=== PATIENT | male | born 1990 | race African-American/Black ===

== ENCOUNTER 2017-10-06 08:59 | Emergency (ER) | payer SELFPAY ==
[~2017-10-06] VITALS: Ht 182.9 cm; Wt 110.0 kg
[2017-10-06 09:01] VITALS: BP 139/91; PULSE 71; RESP 16; TEMP 98.4; O2SAT 98
[2017-10-06] MEDS ORDERED: PROCHCT RECTAL (09:59)
--- NOTE | 2017-10-06 10:05 | PD ---
HPI Chief Complaint: GI Complaint Time Seen by Provider: 09:27 Travel History International Travel<30 days: No Contact w/Intl Traveler<30days: No Traveled to known affect area: No History of Present Illness HPI This patient complains of rectal pain. He's had hemorrhoid problems the past. He has no drainage or bleeding from it. It's been irritating him for 4 days. Symptoms severity is mild to moderate PFSH Past Medical History Anxiety: Yes Diminished Hearing: No Gastrointestinal Disorders: Yes (hemorrhoids) Influenza Vaccination: No Past Surgical History Surgical History: No Previous Surgery Social History Alcohol Use: No Tobacco Use: No Substance Use: No Allergies-Medications (Allergen,Severity, Reaction): Coded Allergies: No Known Allergies (Unverified , 10/06/17) Reported Meds & Prescriptions Reported Meds & Active Scripts Active Proctofoam Hc Rectal (Hydrocortisone/Pramoxine) 1-1% Foam 1 Applic RECTAL Q8H PRN Review of Systems HENT: No: Headaches Cardiovascular: No: Chest Pain or Discomfort Respiratory: No: Cough Gastrointestinal: No: Nausea Physical Exam Narrative GASTROINTESTINAL: Abdomen soft, non-tender, nondistended. Positive bowel sounds. No hepato-splenomegaly, or palpable masses. No guarding. SKIN: Focused skin assessment reveals no rash or ulcers. Skin is warm and dry. Palpation shows no induration or nodules. Rectal: Patient has a tender external hemorrhoid at the 6 o'clock position. I don't see any sign of infection. No drainage or bleeding. Data Data Last Documented VS Vital Signs Date Time Temp Pulse Resp B/P (MAP) Pulse Ox O2 Delivery O2 Flow Rate FiO2 10/06/17 09:01 98.4 71 16 139/91 (107) 98 MDM Medical Decision Making Medical Screen Exam Complete: Yes Emergency Medical Condition: Yes Medical Record Reviewed: Yes Differential Diagnosis External hemorrhoid, abscess, boil Narrative Course I have reviewed the patient's electronic medical record. I prescribed him some Vicente foam HC Follow-up with primary care or colorectal physician Diagnosis Primary Impression: External hemorrhoid Additional Instructions: The patient was advised to follow up with their physician and return if they worsen. Med/Other Pt SpecificInfo: Prescription(s) given Scripts Hydrocortisone-Pramoxine Rectal (Proctofoam Hc Rectal) 1-1% Foam 1 APPLIC RECTAL Q8H Y for ITCHING/INFLAMMATION, #1 CAN 0 Refills Prov: Gomez Hansen MD 10/06/17 Disposition: 01 DISCHARGE HOME Condition: Stable Gomez Hansen MD Oct 06, 2017 10:05
== END 2017-10-06 10:17 | disposition home or self-care (01) ==
LOC: NEPD 08:59
DX: K64.4 Residual hemorrhoidal skin tags (principal); F41.9 Anxiety disorder, unspecified
CPT/HCPCS: 99283

== ENCOUNTER 2017-10-09 11:27 | Emergency (ER) | payer SELFPAY ==
[~2017-10-09 11:27] MED LIST: PROCHCT RECTAL
[2017-10-09 11:38] VITALS: BP 132/88; PULSE 84; RESP 16; TEMP 98.2; O2SAT 100
--- NOTE | 2017-10-09 14:05 | PD ---
HPI Chief Complaint: Lump, Cyst, Hernia Time Seen by Provider: 13:50 Travel History International Travel<30 days: No Contact w/Intl Traveler<30days: No Traveled to known affect area: No History of Present Illness HPI 27-year-old male presents to the emergency department complaining of rectal pain since Sunday. States that he has been using Proctofoam and this is not relieved his pain. Says his pain is severe, no radiation of pain. States that ibuprofen has helped but quickly wears off. Today, he has taken a total of 1600mg of ibuprofen with mild relief. Says he was seen yesterday by his primary care physician and he was diagnosed with hemorrhoids. Patient says that he has occasional bright red bleeding per rectum. Denies foreign body insertion. Says he has pain with sitting and has a "shock to the stomach" whenever he urinates and defecates. At this point patient is actively trying to hold his urine and stool secondary to pain. Denies fever, chills. Denies other chronic issues. PFSH Past Medical History Anxiety: Yes Diminished Hearing: No Gastrointestinal Disorders: Yes (hemorrhoids) Social History Alcohol Use: No Tobacco Use: No Substance Use: No Allergies-Medications (Allergen,Severity, Reaction): Coded Allergies: No Known Allergies (Unverified , 10/09/17) Reported Meds & Prescriptions Reported Meds & Active Scripts Active Ibuprofen 800 Mg Tab 800 Mg PO Q6HR PRN Percocet (Oxycodone-Acetaminophen) 5-325 mg Tab 1-2 Tab PO Q6H PRN Flagyl (Metronidazole) 500 Mg Tab 500 Mg PO TID 10 Days Ciprofloxacin (Ciprofloxacin HCl) 500 Mg Tab 500 Mg PO BID 10 Days Proctofoam Hc Rectal (Hydrocortisone/Pramoxine) 1-1% Foam 1 Applic RECTAL Q8H PRN Review of Systems Except as stated in HPI: all other systems reviewed are Neg Physical Exam Narrative GENERAL: Well-nourished, well-developed patient. SKIN: Focused skin assessment warm/dry. HEAD: Normocephalic. EYES: No scleral icterus. No injection or drainage. NECK: Supple, trachea midline. No JVD or lymphadenopathy. CARDIOVASCULAR: Regular rate and rhythm without murmurs, gallops, or rubs. RESPIRATORY: Breath sounds equal bilaterally. No accessory muscle use. GASTROINTESTINAL: Abdomen soft, non-tender, nondistended. Rectal exam- 10 to 11 o'clock position to anus area of induration and extreme pain. No evidence of rectal involvement with digital exam. MUSCULOSKELETAL: No cyanosis, or edema. BACK: Nontender without obvious deformity. No CVA tenderness. Data Data Last Documented VS Vital Signs Date Time Temp Pulse Resp B/P (MAP) Pulse Ox O2 Delivery O2 Flow Rate FiO2 10/09/17 17:47 70 16 123/55 (77) 98 10/09/17 16:00 Room Air 10/09/17 11:38 98.2 Orders Orders Acetamin-Hydrocod 325-5 Mg ([place] 5-325 (10/09/17 14:15) Ct Pelvis W Iv Contrast(Rout) (10/09/17 ) Complete Blood Count With Diff (10/09/17 14:23) Comprehensive Metabolic Panel (10/09/17 14:23) Lipase (10/09/17 14:23) Prothrombin Time / Inr (Pt) (10/09/17 14:23) Act Partial Throm Time (Ptt) (10/09/17 14:23) Urinalysis - C+S If Indicated (10/09/17 14:23) Iv Access Insert/Monitor (10/09/17 14:23) Sodium Chlor 0.9% 1000 Ml Inj (Ns 1000 M (10/09/17 14:23) Sodium Chloride 0.9% Flush (Ns Flush) (10/09/17 14:30) Morphine Inj (Morphine Inj) (10/09/17 14:30) Ondansetron Inj (Zofran Inj) (10/09/17 14:30) Iohexol 350 Inj (Omnipaque 350 Inj) (10/09/17 14:59) Morphine Inj (Morphine Inj) (10/09/17 16:15) Lidocaine 1% Inj (50 Ml) (Xylocaine 1% I (10/09/17 16:15) Wound Culture And Gram Stain (10/09/17 16:15) Ed Discharge Order (10/09/17 17:12) Labs Laboratory Tests Test 10/09/17 14:40 10/09/17 16:03 White Blood Count 8.4 TH/MM3 Red Blood Count 4.69 MIL/MM3 Hemoglobin 14.3 GM/DL Hematocrit 42.7 % Mean Corpuscular Volume 91.1 FL Mean Corpuscular Hemoglobin 30.4 PG Mean Corpuscular Hemoglobin Concent 33.4 % Red Cell Distribution Width 12.2 % Platelet Count 169 TH/MM3 Mean Platelet Volume 10.1 FL Neutrophils (%) (Auto) 77.1 % Lymphocytes (%) (Auto) 15.7 % Monocytes (%) (Auto) 6.6 % Eosinophils (%) (Auto) 0.3 % Basophils (%) (Auto) 0.3 % Neutrophils # (Auto) 6.5 TH/MM3 Lymphocytes # (Auto) 1.3 TH/MM3 Monocytes # (Auto) 0.6 TH/MM3 Eosinophils # (Auto) 0.0 TH/MM3 Basophils # (Auto) 0.0 TH/MM3 CBC Comment DIFF FINAL Differential Comment Prothrombin Time 11.1 SEC Prothromb Time International Ratio 1.0 RATIO Activated Partial Thromboplast Time 28.0 SEC Blood Urea Nitrogen 6 MG/DL Creatinine 1.09 MG/DL Random Glucose 79 MG/DL Total Protein 7.7 GM/DL Albumin 3.9 GM/DL Calcium Level 9.0 MG/DL Alkaline Phosphatase 63 U/L Aspartate Amino Transf (AST/SGOT) 38 U/L Alanine Aminotransferase (ALT/SGPT) 38 U/L Total Bilirubin 0.5 MG/DL Sodium Level 139 MEQ/L Potassium Level 4.0 MEQ/L Chloride Level 105 MEQ/L Carbon Dioxide Level 27.8 MEQ/L Anion Gap 6 MEQ/L Estimat Glomerular Filtration Rate 98 ML/MIN Lipase 87 U/L Urine Color LIGHT-YELLOW Urine Turbidity CLEAR Urine pH 7.0 Urine Specific [place] 1.024 Urine Protein NEG mg/dL Urine Glucose (UA) NEG mg/dL Urine Ketones NEG mg/dL Urine Occult Blood NEG Urine Nitrite NEG Urine Bilirubin NEG Urine Urobilinogen LESS THAN 2.0 MG/DL Urine Leukocyte Esterase NEG Microscopic Urinalysis Comment CULT NOT INDICATED MDM Medical Decision Making Medical Screen Exam Complete: Yes Emergency Medical Condition: Yes Differential Diagnosis Perianal abscess versus perirectal abscess versus hemorrhoids Narrative Course 27-year-old male presents to the emergency department complaining of rectal pain since Sunday. States that he has been using Proctofoam and this is not relieved his pain. Says his pain is severe, no radiation of pain. States that ibuprofen has helped but quickly wears off. Today, he has taken a total of 1600mg of ibuprofen with mild relief. Says he was seen yesterday by his primary care physician and he was diagnosed with hemorrhoids. Patient says that he has occasional bright red bleeding per rectum. Denies foreign body insertion. Says he has pain with sitting and has a "shock to the stomach" whenever he urinates and defecates. At this point patient is actively trying to hold his urine and stool secondary to pain. Denies fever, chills. Denies other chronic issues. Vital signs stable Physical exam demonstrates potential abscess to the perianal area. I'm concerned this is a deeper soft tissue infection as I'm not convinced this pain is of a hemorrhoid etiology. Patient is had no relief from Proctofoam. Patient is nearly writhing in pain and area to movement of the buttocks. Administered hydrocodone. Patient will be followed up/ transferred to D pod with Meme. See her note regarding further treatment and evaluation. Referrals: Colon Rectal Specialist Additional Instructions: Follow-up a primary care physician within 2-3 days. Scripts Ibuprofen (Ibuprofen) 800 Mg Tab 800 MG PO Q6HR Y for PAIN, #30 TAB 0 Refills Prov: Sole Noriega 10/09/17 Oxycodone-Acetaminophen (Percocet) 5-325 mg Tab 1-2 TAB PO Q6H Y for PAIN, #20 TAB 0 Refills Prov: VanessaSole casianoP 10/09/17 Metronidazole (Flagyl) 500 Mg Tab 500 MG PO TID for Infection for 10 Days, TAB 0 Refills Prov: Sole NoriegaP 10/09/17 Ciprofloxacin (Ciprofloxacin) 500 Mg Tab 500 MG PO BID for Infection for 10 Days, #20 TAB 0 Refills Prov: HariSole 10/09/17 Disposition: 01 DISCHARGE HOME Condition: Stable Yina Macias Oct 09, 2017 14:05
[2017-10-09] MEDS ORDERED: ACETAMINOPHEN/HYDROcodone 325 MG/5 MG TAB PO ONE (14:15)
[2017-10-09] MEDS ORDERED: SODIUM CHLOR 0.9% 1000 ML INJ 1,000 ML IV SCH (14:23)
[2017-10-09] MEDS ORDERED: ONDANSETRON HCL 4 MG/2 ML VIAL IV PUSH ONE (14:30)
[2017-10-09] MEDS ORDERED: SODIUM CHLORIDE 0.9% FLUSH 10 ML FLUSH IV FLUSH PRN (14:30)
[2017-10-09] MEDS ORDERED: MORPHINE SULFATE 4 MG/ML INJ IV PUSH ONE ×2 (14:30→16:15)
--- NOTE | 2017-10-09 14:34 | PD ---
Physical Exam Time Seen by Provider: 14:30 Narrative I received report from Yina Macias PA-C. See her note for initial history of present illness and patient assessment. Data Data Last Documented VS Vital Signs Date Time Temp Pulse Resp B/P (MAP) Pulse Ox O2 Delivery O2 Flow Rate FiO2 10/09/17 11:38 98.2 84 16 132/88 (103) 100 Orders Orders Acetamin-Hydrocod 325-5 Mg ([place] 5-325 (10/09/17 14:15) Ct Pelvis W Iv Contrast(Rout) (10/09/17 ) Complete Blood Count With Diff (10/09/17 14:23) Comprehensive Metabolic Panel (10/09/17 14:23) Lipase (10/09/17 14:23) Prothrombin Time / Inr (Pt) (10/09/17:23) Act Partial Throm Time (Ptt) (10/09/17 14:23) Urinalysis - C+S If Indicated (10/09/17 14:23) Iv Access Insert/Monitor (10/09/17 14:23) Sodium Chlor 0.9% 1000 Ml Inj (Ns 1000 M (10/09/17 14:23) Sodium Chloride 0.9% Flush (Ns Flush) (10/09/17 14:30) Morphine Inj (Morphine Inj) (10/09/17 14:30) Ondansetron Inj (Zofran Inj) (10/09/17 14:30) Iohexol 350 Inj (Omnipaque 350 Inj) (10/09/17 14:59) Morphine Inj (Morphine Inj) (10/09/17 16:15) Lidocaine 1% Inj (50 Ml) (Xylocaine 1% I (10/09/17 16:15) Wound Culture And Gram Stain (10/09/17 16:15) Ed Discharge Order (10/09/17 17:12) Labs Laboratory Tests Test 10/09/17 14:40 10/09/17 16:03 White Blood Count 8.4 TH/MM3 Red Blood Count 4.69 MIL/MM3 Hemoglobin 14.3 GM/DL Hematocrit 42.7 % Mean Corpuscular Volume 91.1 FL Mean Corpuscular Hemoglobin 30.4 PG Mean Corpuscular Hemoglobin Concent 33.4 % Red Cell Distribution Width 12.2 % Platelet Count 169 TH/MM3 Mean Platelet Volume 10.1 FL Neutrophils (%) (Auto) 77.1 % Lymphocytes (%) (Auto) 15.7 % Monocytes (%) (Auto) 6.6 % Eosinophils (%) (Auto) 0.3 % Basophils (%) (Auto) 0.3 % Neutrophils # (Auto) 6.5 TH/MM3 Lymphocytes # (Auto) 1.3 TH/MM3 Monocytes # (Auto) 0.6 TH/MM3 Eosinophils # (Auto) 0.0 TH/MM3 Basophils # (Auto) 0.0 TH/MM3 CBC Comment DIFF FINAL Differential Comment Prothrombin Time 11.1 SEC Prothromb Time International Ratio 1.0 RATIO Activated Partial Thromboplast Time 28.0 SEC Blood Urea Nitrogen 6 MG/DL Creatinine 1.09 MG/DL Random Glucose 79 MG/DL Total Protein 7.7 GM/DL Albumin 3.9 GM/DL Calcium Level 9.0 MG/DL Alkaline Phosphatase 63 U/L Aspartate Amino Transf (AST/SGOT) 38 U/L Alanine Aminotransferase (ALT/SGPT) 38 U/L Total Bilirubin 0.5 MG/DL Sodium Level 139 MEQ/L Potassium Level 4.0 MEQ/L Chloride Level 105 MEQ/L Carbon Dioxide Level 27.8 MEQ/L Anion Gap 6 MEQ/L Estimat Glomerular Filtration Rate 98 ML/MIN Lipase 87 U/L Urine Color LIGHT-YELLOW Urine Turbidity CLEAR Urine pH 7.0 Urine Specific [place] 1.024 Urine Protein NEG mg/dL Urine Glucose (UA) NEG mg/dL Urine Ketones NEG mg/dL Urine Occult Blood NEG Urine Nitrite NEG Urine Bilirubin NEG Urine Urobilinogen LESS THAN 2.0 MG/DL Urine Leukocyte Esterase NEG Microscopic Urinalysis Comment CULT NOT INDICATED [facility] Supervised Visit with YO: Yes Narrative Course I received report from Yina Macias PA-C. See her note for initial history of present illness and patient assessment. 1430: I states symptoms have been going on since Sunday or Sunday. He denies fever, vomiting. On my evaluation the patient does have an indurated area a approximately the 11:00 of the rectal area. Digital exam is extremely painful for the patient and limited due to pain. Hemoccult negative. There is a noted non-inflamed hemorrhoid to approximately the 1 o'clock position of the anus. Suspecting natalie-rectal abscess. IV set obtained. CBC, CMP, lipase, urinalysis, CT pelvis with IV contrast ordered. NS Fluid bolus, morphine, Zofran ordered. 1513: CBC unremarkable. 1531: Peak, lipase, coags unremarkable. 1559: CT pelvis concludes: Pelvis CT 10/09/17 0000 Signed Impressions: Service Date/Time: Monday, October 09, 2017 14:37 - CONCLUSION: There is a 2.3 cm low-density perianal collection on the left which may represent a perianal abscess. Malik Denny MD [id number]: See my procedure note for incision and drainage of the perianal abscess. Wound culture pending. Urinalysis with no signs of infection. Ciprofloxacin , Flagyl, Percocet prescribed for home. Certainly patient to call follow up with colorectal. Instructed patient to follow up with primary care provider. Patient verbalizes understanding and agreement with treatment plan. Patient is medically cleared and stable for discharge. Discussed reasons to return to the emergency department. Patient agrees with treatment plan. The patients vital signs are stable and the patient is stable for outpatient follow-up and treatment. Patient discharged home, stable and in no acute distress. Procedures Procedure Narrative INCISION AND DRAINAGE OF ABSCESS: The area was prepped and was sterilely draped. A subcutaneous wheal of 1 % Xylocaine with a total number 5 mL was used to anesthetize the area properly. A number 18g needle was used to puncture the area of the abscess. The abscess was drained. Cultures were obtained. Sterile dressing applied. Diagnosis Primary Impression: Perianal abscess Referrals: Colon Rectal Specialist Primary Care Physician Patient Instructions: Abscess (ED), Abscess Follow-up (ED), Abscess Incision and Drainage (DC), General Instructions, Rectal Abscess (ED) Additional Instruction: Complete full course of antibiotics Warm compresses to the affected area Keep area clean and dry Ibuprofen or Tylenol as directed and as needed for pain and inflammation Follow-up with primary care provider Follow-up with Colon Rectal specialist Return to emergency department immediately with worsening of symptoms Med/Other Pt SpecificInfo: Prescription(s) given Scripts Ibuprofen (Ibuprofen) 800 Mg Tab 800 MG PO Q6HR Y for PAIN, #30 TAB 0 Refills Prov: Sole Noriega 10/09/17 Oxycodone-Acetaminophen (Percocet) 5-325 mg Tab 1-2 TAB PO Q6H Y for PAIN, #20 TAB 0 Refills Prov: HariSole PIERSON 10/09/17 Metronidazole (Flagyl) 500 Mg Tab 500 MG PO TID for Infection for 10 Days, TAB 0 Refills Prov: HariSole PIERSON 10/09/17 Ciprofloxacin (Ciprofloxacin) 500 Mg Tab 500 MG PO BID for Infection for 10 Days, #20 TAB 0 Refills Prov: HariSole PIERSON 10/09/17 Disposition: 01 DISCHARGE HOME Condition: Stable VanessaohSole PIERSON Oct 09, 2017 14:34
[2017-10-09] MEDS ORDERED: IOHEXOL 350 MG/ML 10 ML VIAL (for RAD DIAG) IVCONTRAST ONE (14:59)
[2017-10-09 15:07] LABS: AUTOMATED NEUTROPHIL # 6.5 TH/MM3 (1.8-7.7); BASOPHIL % 0.3 % (0.0-2.0); EOSINOPHIL % 0.3 % (0.0-4.0); HEMATOCRIT 42.7 % (39.0-51.0); HEMO FLAGS DIFF FINAL; LYMPH % 15.7 % (9.0-44.0); LYMPHOCYTE # 1.3 TH/MM3 (1.0-4.8); MEAN CELL VOLUME 91.1 FL (80.0-100.0); MEAN CORPUSCULAR HEMOGLOBIN 30.4 PG (27.0-34.0); MEAN CORPUSCULAR HGB CONC 33.4 % (32.0-36.0); MONO % 6.6 % (0.0-8.0); NEUT % 77.1 % (16.0-70.0); PLATELET COUNT 169 TH/MM3 (150-450); RED BLOOD COUNT 4.69 MIL/MM3 (4.50-5.90); RED CELL DISTRIBUTION WIDTH 12.2 % (11.6-17.2); WHITE BLOOD COUNT 8.4 TH/MM3 (4.0-11.0)
[2017-10-09 15:20] LABS: PROTHROMBIN TIME - PATIENT 11.1 SEC (9.8-11.6)
[2017-10-09 15:21] LABS: ALT (GPT) 38 U/L (12-78); ANION GAP 6 MEQ/L (5-15); AST (GOT) 38 U/L (15-37); BICARBONATE 27.8 MEQ/L (21.0-32.0); BLOOD UREA NITROGEN 6 MG/DL (7-18); CHLORIDE 105 MEQ/L (98-107); GLOMERULAR FILTRATION RATE 98 ML/MIN (>89); SODIUM (NA) 139 MEQ/L (136-145)
[2017-10-09 15:23] LABS: ALKALINE PHOSPHATASE 63 U/L (45-117); TOTAL BILIRUBIN ADULT 0.5 MG/DL (0.2-1.0)
--- NOTE | 2017-10-09 15:32 | RADRPT ---
EXAM DATE/TIME: 10/09/2017 14:37 [facility] COMPARISON: No previous studies available for comparison. INDICATIONS : Rectal pain. Evaluate for abscess. IV CONTRAST: 85 cc Omnipaque 350 (iohexol) IV ORAL CONTRAST: No oral contrast ingested. RADIATION DOSE: 15.79 CTDIvol (mGy) MEDICAL HISTORY : Hemorrhoids. SURGICAL HISTORY : None. ENCOUNTER: Initial ACUITY: 4 - 6 days PAIN SCALE: 10/10 LOCATION: Rectum. TECHNIQUE: Volumetric scanning of the pelvis was performed. Using automated exposure control and adjustment of t he mA and/or kV according to patient size, radiation dose was kept as low as reasonably achievable to obtain optimal diagnostic quality images. DICOM format image data is available electronically for review and comparison. FINDINGS: BOWEL/MESENTERY: The visualized small bowel and colon demonstrate no acute finding. There is a low density mildly rim- enhancing collection in a left perianal location along the medial gluteal cleft. It measures approxim ately 2.0 x 1.9 x 2.3 cm and there is mild surrounding inflammation. There is no free fluid. BLADDER: There is no wall thickening or mass. RETROPERITONEUM: There is no aneurysm or lymphadenopathy. REPRODUCTIVE: Within normal limits. INGUINAL: There is no lymphadenopathy or hernia. MUSCULOSKELETAL: No concerning abnormality is identified. There is a sclerotic lesion in the left iliac bone likely re presenting a bone island. CONCLUSION: There is a 2.3 cm low-density perianal collection on the left which may represent a perianal abscess. Malik Denny MD on October 09, 2017 at 15:27 Board Certified Radiologist. This report was verified electronically.
[2017-10-09 16:00] VITALS: BP 124/63; PULSE 74; RESP 16; O2SAT 96
[2017-10-09] MEDS ORDERED: LIDOCAINE HCL 1% 50 ML VIAL INFIL ONE (16:15)
[2017-10-09 16:51] LABS: BLOOD, URINE NEG (NEG); GLUCOSE,URINE NEG (NEG); KETONE, URINE NEG (NEG); NITRITE,URINE NEG (NEG); URINE COLOR LIGHT-YELLOW (YELLW/STRAW)
[2017-10-09 16:56] LABS: COMMENT (UR) CULT NOT INDICATED; CULTURE IF INDICATED CULT NOT INDICATED
[2017-10-09] MEDS ORDERED: CIPR500T2 PO (17:04)
[2017-10-09] MEDS ORDERED: PERC5TAB12 PO (17:04)
[2017-10-09] MEDS ORDERED: METR-1 PO (17:04)
[2017-10-09] MEDS ORDERED: IBUP1TAB7 PO (17:04)
[2017-10-09 17:47] VITALS: BP 123/55
== END 2017-10-09 17:50 | disposition home or self-care (01) ==
LOC: NEPK 11:27 → NEPD 17:50
DX: K61.0 Anal abscess (principal); B96.20 Unspecified Escherichia coli [E. coli] as the cause of diseases classified elsewhere; F41.9 Anxiety disorder, unspecified
CPT/HCPCS: 46050; 72193; 80053; 81001; 83690; 85025; 85610; 85730; 86403; 87070; 87077; 87186; 96374; 96375; 99285; J2270; J2405; J7030; Q9967

== ENCOUNTER 2018-01-03 13:23 | Emergency (ER) | payer SELFPAY ==
[~2018-01-03] VITALS: Ht 180.3 cm; Wt 109.1 kg
[~2018-01-03 13:23] MED LIST changes: +CIPR500T2 PO; +IBUP1TAB7 PO; +METR-1 PO; +PERC5TAB12 PO
[2018-01-03 13:25] VITALS: BP 145/87; PULSE 89; RESP 16; TEMP 98.3; O2SAT 100
[2018-01-03] MEDS ORDERED: IBUP-232 PO (14:20)
[2018-01-03] MEDS ORDERED: SODIUM CHLOR 0.9% 1000 ML INJ 1,000 ML IV SCH (14:50)
--- NOTE | 2018-01-03 14:55 | PD ---
HPI Chief Complaint: Cold / Flu Symptoms Time Seen by Provider: 14:24 Travel History International Travel<30 days: No Contact w/Intl Traveler<30days: No Traveled to known affect area: No History of Present Illness HPI 27-year-old male presents for evaluation of generalized weakness, myalgias, cough, congestion, chills, nausea and vomiting. Symptoms started 4 days ago. He reports that he feels dehydrated and his urine has been dark yellow. The cough is productive of yellow sputum. He reports that his daughter was recently diagnosed with influenza. He denies abdominal pain, sore throat, rash or recent travel. He denies any IV drug use. He has no other complaints at this time. [facility] Past Medical History Anxiety: Yes Diminished Hearing: No Gastrointestinal Disorders: Yes (hemorrhoids) Social History Alcohol Use: No Tobacco Use: No Substance Use: No Allergies-Medications (Allergen,Severity, Reaction): Coded Allergies: No Known Allergies (Unverified , 01/03/18) Reported Meds & Prescriptions Reported Meds & Active Scripts Active Reported Ibuprofen 600 Mg Tab 600 Mg PO Q6H PRN Review of Systems Except as stated in HPI: all other systems reviewed are Neg Physical Exam Narrative GENERAL: Well-developed well-nourished male SKIN: Warm and dry. HEAD: Atraumatic. Normocephalic. EYES: Pupils equal and round. No scleral icterus. No injection or drainage. ENT: No nasal bleeding or discharge. Mucous membranes pink and moist. NECK: Trachea midline. No JVD. CARDIOVASCULAR: Regular rate and rhythm. No murmur appreciated. RESPIRATORY: No accessory muscle use. Course breath sounds bilaterally. GASTROINTESTINAL: Abdomen soft, non-tender, nondistended. Hepatic and splenic margins not palpable. MUSCULOSKELETAL: No obvious deformities. No clubbing. No cyanosis. No edema. NEUROLOGICAL: Awake and alert. No obvious cranial nerve deficits. Motor grossly within normal limits. Normal speech. PSYCHIATRIC: Appropriate mood and affect; insight and judgment normal. Data Data Last Documented VS Vital Signs Date Time Temp Pulse Resp B/P (MAP) Pulse Ox O2 Delivery O2 Flow Rate FiO2 01/03/18 13:25 98.3 89 16 145/87 (106) 100 Orders Orders Complete Blood Count With Diff (01/03/18 14:50) Comprehensive Metabolic Panel (01/03/18 14:50) Urinalysis - C+S If Indicated (01/03/18 14:50) Iv Access Insert/Monitor (01/03/18 14:50) Ondansetron Inj (Zofran Inj) (01/03/18 15:00) Sodium Chlor 0.9% 1000 Ml Inj (Ns 1000 M (01/03/18 14:50) Chest, Single Ap (01/03/18 14:50) Creatine Kinase (Cpk) (01/03/18 14:50) Influenzae A/B Antigen (01/03/18 14:50) Albuterol-Ipratropium Neb (Duoneb Neb) (01/03/18 15:00) Labs Laboratory Tests Test 01/03/18 15:29 01/03/18 16:30 White Blood Count 2.9 TH/MM3 Red Blood Count 4.65 MIL/MM3 Hemoglobin 14.6 GM/DL Hematocrit 42.1 % Mean Corpuscular Volume 90.4 FL Mean Corpuscular Hemoglobin 31.4 PG Mean Corpuscular Hemoglobin Concent 34.7 % Red Cell Distribution Width 13.0 % Platelet Count 155 TH/MM3 Mean Platelet Volume 10.6 FL Neutrophils (%) (Auto) 43.4 % Lymphocytes (%) (Auto) 45.1 % Monocytes (%) (Auto) 7.4 % Eosinophils (%) (Auto) 3.4 % Basophils (%) (Auto) 0.7 % Neutrophils # (Auto) 1.3 TH/MM3 Lymphocytes # (Auto) 1.3 TH/MM3 Monocytes # (Auto) 0.2 TH/MM3 Eosinophils # (Auto) 0.1 TH/MM3 Basophils # (Auto) 0.0 TH/MM3 CBC Comment DIFF FINAL Differential Comment Blood Urea Nitrogen 7 MG/DL Creatinine 1.24 MG/DL Random Glucose 94 MG/DL Total Protein 8.0 GM/DL Albumin 3.8 GM/DL Calcium Level 8.8 MG/DL Alkaline Phosphatase 72 U/L Aspartate Amino Transf (AST/SGOT) 32 U/L Alanine Aminotransferase (ALT/SGPT) 31 U/L Total Bilirubin 0.6 MG/DL Sodium Level 138 MEQ/L Chloride Level 103 MEQ/L Carbon Dioxide Level 27.4 MEQ/L Anion Gap 8 MEQ/L Estimat Glomerular Filtration Rate 85 ML/MIN Total Creatine Kinase 301 U/L Urine Color YELLOW Urine Turbidity CLEAR Urine pH 6.5 Urine Specific [place] 1.023 Urine Protein TRACE mg/dL Urine Glucose (UA) NEG mg/dL Urine Ketones NEG mg/dL Urine Occult Blood NEG Urine Nitrite NEG Urine Bilirubin NEG Urine Urobilinogen 8.0 MG/DL Urine Leukocyte Esterase NEG Urine RBC LESS THAN 1 /hpf Urine WBC 1 /hpf Urine Squamous Epithelial Cells <1 /hpf Urine Mucus FEW /lpf Microscopic Urinalysis Comment CULT NOT INDICATED MDM Medical Decision Making Medical Screen Exam Complete: Yes Emergency Medical Condition: Yes Medical Record Reviewed: Yes Differential Diagnosis Influenza, dehydration, gastroenteritis, electrolyte abnormality, rhabdomyolysis Narrative Course Lab work, chest x-ray, influenza antigen test were performed and they are all reassuring. The patient was given IV fluids, DuoNeb treatment, Zofran with improvement in his symptoms. I suspect he has a viral bronchitis. He will be discharged with Zofran, albuterol, Tessalon. Diagnosis Primary Impression: Nausea and vomiting Additional Impression: Bronchitis Patient Instructions: Acute Bronchitis (ED), Acute Nausea and Vomiting (ED), General Instructions Additional Instructions: Medication as prescribed. Follow-up with primary care physician. Return for any emergent medical conditions. Med/Other Pt SpecificInfo: Prescription(s) given Scripts Ondansetron (Zofran) 4 Mg Tab 4 MG PO Q6HR Y for NAUSEA OR VOMITING, #20 TAB 0 Refills Prov: Terrance Ferreira MD 01/03/18 Benzonatate (Tessalon Perles) 100 Mg Cap 200 MG PO TID Y for COUGH, #30 CAP 0 Refills Prov: Terrance Ferreira MD 01/03/18 Albuterol 8.5 GM Inh (Proair Hfa 8.5 GM Inh) 90 Mcg/Act Aer 2 PUFF INH Q4-6H Y for SHORTNESS OF BREATH, #1 INHALER 0 Refills 108 mcg/actuation Prov: Terrance Ferreira MD 01/03/18 Disposition: 01 DISCHARGE HOME Condition: Stable Vidal Barrios Jan 03, 2018 14:55
[2018-01-03] MEDS ORDERED: ONDANSETRON HCL 4 MG/2 ML VIAL IVP ONE (15:00)
[2018-01-03] MEDS: RESP: ALBUTEROL 2.5 MG/IPRATROPIUM 0.5 MG NEB (SCH) INH ×2 (15:00→15:03)
[2018-01-03 15:57] LABS: AUTOMATED NEUTROPHIL # 1.3 TH/MM3 (1.8-7.7); BASOPHIL % 0.7 % (0.0-2.0); EOSINOPHIL # 0.1 TH/MM3 (0-0.4); EOSINOPHIL % 3.4 % (0.0-4.0); HEMATOCRIT 42.1 % (39.0-51.0); HEMOGLOBIN 14.6 GM/DL (13.0-17.0); LYMPH % 45.1 % (9.0-44.0); LYMPHOCYTE # 1.3 TH/MM3 (1.0-4.8); MEAN CELL VOLUME 90.4 FL (80.0-100.0); MEAN CORPUSCULAR HEMOGLOBIN 31.4 PG (27.0-34.0); MEAN CORPUSCULAR HGB CONC 34.7 % (32.0-36.0); MEAN PLATELET VOLUME 10.6 FL (7.0-11.0); MONO % 7.4 % (0.0-8.0); MONOCYTE # 0.2 TH/MM3 (0-0.9); NEUT % 43.4 % (16.0-70.0); PLATELET COUNT 155 TH/MM3 (150-450); RED BLOOD COUNT 4.65 MIL/MM3 (4.50-5.90); WHITE BLOOD COUNT 2.9 TH/MM3 (4.0-11.0)
[2018-01-03 16:14] LABS: ALBUMIN 3.8 GM/DL (3.4-5.0); ALKALINE PHOSPHATASE 72 U/L (45-117); ALT (GPT) 31 U/L (12-78); AST (GOT) 32 U/L (15-37); BICARBONATE 27.4 MEQ/L (21.0-32.0); BLOOD UREA NITROGEN 7 MG/DL (7-18); CALCIUM 8.8 MG/DL (8.5-10.1); CHLORIDE 103 MEQ/L (98-107); CREATININE 1.24 MG/DL (0.60-1.30); GLOMERULAR FILTRATION RATE 85 ML/MIN (>89); GLUCOSE,RANDOM 94 MG/DL (74-106); SODIUM (NA) 138 MEQ/L (136-145); TOTAL BILIRUBIN ADULT 0.6 MG/DL (0.2-1.0)
--- NOTE | 2018-01-03 16:40 | RADRPT ---
EXAM DATE/TIME: 01/03/2018 15:24 [facility] COMPARISON: No previous studies available for comparison. INDICATIONS : Cough and flu symptoms for 5 days. MEDICAL HISTORY : None. SURGICAL HISTORY : None. ENCOUNTER: Initial ACUITY: 4 - 6 days PAIN SCORE: 0/10 LOCATION: Bilateral chest FINDINGS: There is slight asymmetric elevation the right diaphragm of undetermined chronicity. No definite foca l infiltrate or effusion. Cardiac contours are satisfactory aerated CONCLUSION: Mild asymmetric elevation or eventration of the right diaphragm. Malik López MD on January 03, 2018 at 16:37 Board Certified Radiologist. This report was verified electronically.
[2018-01-03 16:52] LABS: BILIRUBIN, URINE NEG (NEG); BLOOD, URINE NEG (NEG); GLUCOSE,URINE NEG (NEG); KETONE, URINE NEG (NEG); MUCUS URINE FEW /lpf (OCC); NITRITE,URINE NEG (NEG); PH, URINE 6.5 (5.0-8.5); SQUAMOUS EPITHELIAL CELL URINE <1 /hpf (0-5); URINE COLOR YELLOW (YELLW/STRAW); URINE LEUKOCYTE ESTERASE NEG (NEG)
[2018-01-03] MEDS ORDERED: BENZ100 PO (17:05)
[2018-01-03] MEDS ORDERED: ALBUAER3 INH (17:05)
[2018-01-03] MEDS ORDERED: ZOFR4TAB PO (17:05)
== END 2018-01-03 17:16 | disposition home or self-care (01) ==
LOC: NEPK 13:23
DX: R11.2 Nausea with vomiting, unspecified (principal); J40 Bronchitis, not specified as acute or chronic
CPT/HCPCS: 71045; 80053; 81001; 82550; 85025; 87804; 94664; 96361; 96374; 99284; J2405; J7030